=== PATIENT | male | born 1955 | race Caucasian/White ===

== ENCOUNTER → 2025-02-23 07:45 | Outpatient (CLI) | payer MEDICARE, OTHER, SELFPAY ==
--- NOTE | 2025-02-23 07:59 | DI.US.S_ITS ---
PROCEDURE: US ABD AORTA ANEURYSM SCREEN INDICATIONS: TOBACCO USE TECHNIQUE: Real-time scanning was performed of the aorta and proximal common iliac arteries, with image documentation. COMPARISON: None. FINDINGS: Aorta: No ultrasound evidence of abdominal aortic aneurysm. Moderate vascular calcifications are noted diffusely in the aorta and iliac vessels. The aorta in axial dimensions measures approximately: Proximal 2.5 x 2.4 cm. Mid 2.1 x 1.8 cm Distal 2.5 x 2.3 cm Right common iliac artery 0.9 cm Left common iliac artery 0.8 cm. Iliacs: Proximal common iliac arteries are normal in caliber. IMPRESSION: No ultrasound evidence of abdominal aortic aneurysm. Moderate vascular calcifications. Dictated by: Bryant Thomas M.D. on 02/23/2025 at 8:30 Approved by: Bryant Thomas M.D. on 02/23/2025 at 8:32
--- NOTE | 2025-02-23 08:18 | DI.CT.S_ITS ---
PROCEDURE: CT LUNG LOW DOSE SCREENING INDICATIONS: TOBACCO USE TECHNIQUE: Noncontrast 2.0-2.5 mm thick sections acquired from the pulmonary apices to the posterior costophrenic angles. 7 mm thick axial MIP, and 5 mm coronal and sagittal reformats were then acquired. For radiation dose reduction, the following was used: automated exposure control, adjustment of mA and/or kV according to patient size. COMPARISON: None. FINDINGS: Image quality: Diagnostic. Lower Neck: No enlarged lymph nodes. Thyroid: No thyroid nodules which require sonographic follow up, per consensus guidelines. Axillae: No enlarged lymph nodes. Chest Wall: Unremarkable. Bones: No acute osseous abnormalities. Chronic appearing anterior compression fractures of the upper thoracic spine with associated increased kyphosis. No suspicious osseous lesions. Multilevel thoracic spondylosis. Lungs and Pleura: No pneumothorax or pleural effusions. Moderate bibasilar atelectasis. Possible fissural based nodule abutting atelectasis in the anterior aspect of the right middle lobe and right minor fissure measuring 5 mm (154/series 2). Benign calcified pulmonary granuloma noted in the posterior left upper lobe (127/series 2). Otherwise, no suspicious pulmonary nodules. A septal thickening or nodularity. No acute consolidation. Heart: Heart size is normal. No pericardial effusion. Multivessel atherosclerotic calcifications of the coronary arteries. Thoracic Vessels: The aorta and pulmonary arteries demonstrate normal size. Atherosclerotic calcifications of the aortic arch are present. Mediastinum and Jie: No enlarged lymph nodes. Multiple prominent mediastinal and hilar lymph nodes which are more notable for number rather than size are favored to represent reactive adenopathy. Esophagus: No wall thickening. No hiatal hernia. Upper Abdomen: Visualized upper abdomen solid organs and bowel loops appear normal. IMPRESSION: No suspicious pulmonary nodules. LUNG-RADS 2; continued annual screening, if eligible. Clinically Significant Non-pulmonary Findings: Moderate coronary atherosclerosis. Consider cardiology consultation. Dictated by: Ander Seals M.D. on 02/23/2025 at 10:12 Approved by: Ander Seals M.D. on 02/23/2025 at 10:19
== END ==
PROVIDERS: PCP Family Medicine; Referring Provider Family Medicine; Visit Provider Family Medicine
DX: Z12.2 Encounter for screening for malignant neoplasm of respiratory organs (principal); Z13.6 Encounter for screening for cardiovascular disorders; F17.210 Nicotine dependence, cigarettes, uncomplicated; I70.0 Atherosclerosis of aorta; I25.10 Atherosclerotic heart disease of native coronary artery without angina pectoris
CPT/HCPCS: 71271; 76706

== ENCOUNTER → 2025-04-07 16:19 | Outpatient (CLI) | payer MEDICARE, OTHER, SELFPAY ==
[2025-04-07 17:47] LABS: Add Manual Diff / Slide Review NO; Basophils Absolute Auto 0 /uL (0-100); Basophils Percent Auto 0.5 % (0-2); Eosinophils Absolute Auto 100 /uL (0-450); Eosinophils Percent Auto 1.8 % (2-4); Hematocrit 39.5 % (41-53); Hemoglobin 13.6 g/dL (13.5-17.5); Lymphocytes Absolute Auto 1300 /uL (1100-4500); Mean Corpuscular HGB Conc 34.5 % (30-36); Mean Corpuscular Hemoglobin 35.7 PG (26-34); Mean Corpuscular Volume 103.4 fL (80-100); Monocytes Absolute Auto 1000 /uL (0-900); Monocytes Percent Auto 13.1 % (3-14); Neutrophils Absolute Auto 5200 /uL (1500-7000); Neutrophils Percent Auto 67.6 % (50-75); Platelet Count 293 X10^3/uL (150-400); Red Blood Cell Count 3.82 X10^6/uL (4.5-5.9); Red Cell Distribution Width 13.8 % (11.6-14.8); White Blood Cell Count 7.7 X10^3/uL (4.5-11.0)
[2025-04-07 17:58] LABS: Alanine Aminotransferase 19 IU/L (<50); Albumin 4.2 g/dL (3.5-5.0); Albumin Globulin Ratio 1.1 (1.0-2.8); Alkaline Phosphatase 57 U/L (38-126); Aspartate Aminotransferase 32 IU/L (17-59); BUN Creatinine Ratio 12.3 (6-22); Bilirubin Total 0.4 mg/dL (0.2-1.3); Blood Urea Nitrogen 8 mg/dL (9-20); Calcium 9.3 mg/dL (8.4-10.2); Carbon Dioxide 24 mmol/L (22-32); Chloride 96 mmol/L (98-107); Cholesterol 199 mg/dL (140-199); Estimated Glomerular Filt Rate > 60 mL/min (>60); Globulin 3.7 g/dL (1.7-4.1); Glucose 86 mg/dL (70-99); HDL Cholesterol 77 mg/dL (40-60); HEMOLYSIS < 15 (0-50); LDL Cholesterol Calculated 109 mg/dL (<100); Potassium 4.6 mmol/L (3.4-5.1); Sodium 129 mmol/L (137-145); Total Protein 7.9 g/dL (6.3-8.2); Triglycerides 65 mg/dL (35-150)
[2025-04-07 18:29] LABS: Prostate Specific Antigen 0.551 ng/mL (0.10-4.00)
== END ==
PROVIDERS: Urology; PCP Family Medicine; Referring Provider Family Medicine; Visit Provider Family Medicine
DX: N40.1 Benign prostatic hyperplasia with lower urinary tract symptoms (principal); Z72.0 Tobacco use; E78.1 Pure hyperglyceridemia; Z12.5 Encounter for screening for malignant neoplasm of prostate; E87.1 Hypo-osmolality and hyponatremia; R35.0 Frequency of micturition; Z13.6 Encounter for screening for cardiovascular disorders
CPT/HCPCS: 36415; 80053; 80061; 84153; 85025

== ENCOUNTER 2025-11-03 15:47 | Emergency (ER) | payer MEDICARE, OTHER, SELFPAY ==
[2025-11-03 15:53] VITALS: BP 141/78; PULSE 81; RESP 16; TEMP 36.1; O2SAT 97; BMI 25.7
--- NOTE | 2025-11-03 15:59 | DI.US.S_ITS ---
PROCEDURE: US ABDOMEN LIMITED INDICATIONS: RUQ pain TECHNIQUE: Real-time scanning was performed of the abdominal and retroperitoneal organs, with image documentation. COMPARISON: [facility], CT, CT ABDOMEN PELVIS W CON, 11/03/2025, 16:08. FINDINGS: Liver: Liver is normal in size and homogeneous in echotexture. Gallbladder: Mobile foci of echogenicity are present. Wall thickness is normal measuring 2.6 cm. No pericholecystic fluid. Biliary ducts: Intrahepatic bile ducts are non-dilated. Extrahepatic bile duct caliber measures 4.2 mm. Normal is 6-7 mm or less in diameter, or 10 mm or less post-cholecystectomy. Pancreas: Visualized portions of the pancreas are sonographically normal. Miscellaneous: No free abdominal fluid. IMPRESSION: Cholelithiasis without imaging appearance of cholecystitis. Dictated by: Ольга Swan M.D. on 11/03/2025 at 16:59 Approved by: Ольга Swan M.D. on 11/03/2025 at 16:59
--- NOTE | 2025-11-03 15:59 | DI.CT.S_ITS ---
PROCEDURE: CT ABDOMEN PELVIS W CON INDICATIONS: Epigastric and right upper quadrant pain TECHNIQUE: After the administration of intravenous contrast, axial sections acquired from the lung bases to the pubic symphysis. Coronal and sagittal reformats were performed. For radiation dose reduction, the following was used: automated exposure control, adjustment of mA and/or kV according to patient size. COMPARISON: [facility], US, US ABD AORTA ANEURYSM SCREEN, 02/23/2025, 8:03. FINDINGS: Image quality: Diagnostic. Lower Chest: Streaky right upper lobe opacity as well as bibasilar opacities appearing most suggestive of scarring. ABDOMEN: Liver: No solid mass. Steatosis. Gallbladder: No radiopaque gallstones or wall thickening. Biliary ducts: No biliary dilation. Pancreas: No ductal dilation. Spleen: Size is within normal limits. Adrenal Glands: No adrenal nodules. Kidneys and Ureters: No hydronephrosis. Punctate nonobstructing left renal calcification. Stomach and Bowel: Normal colonic caliber, without significant wall thickening. [id number]-[id number] scattered colonic stool. Peritoneum: No abnormal intraperitoneal fluid. No free air. Ventral Wall: No significant ventral hernia. Abdominal Nodes: No retroperitoneal or mesenteric adenopathy by size criteria. Vessels: Aorta and inferior vena cava are normal in size. Prominent atherosclerotic vascular calcifications. PELVIS: Pelvic Organs: Unremarkable. Bladder: No bladder wall thickening, accounting for underdistention. Pelvic Nodes: No enlarged lymph nodes. Miscellaneous: No inguinal hernias are seen. Bones: No aggressive osseous abnormality. IMPRESSION: Ygur-qp-[id number] colonic stool. No obstruction. Nonobstructing left renal calculus. Dictated by: Ольга Swan M.D. on 11/03/2025 at 16:28 Approved by: Ольга Swan M.D. on 11/03/2025 at 16:31
[2025-11-03 16:15] LABS: Add Manual Diff / Slide Review NO; Hematocrit 36.6 % (41-53); Hemoglobin 12.9 g/dL (13.5-17.5); Lymphocytes Absolute Auto 1100 /uL (1100-4500); Mean Corpuscular HGB Conc 35.2 % (30-36); Mean Corpuscular Hemoglobin 36.3 PG (26-34); Mean Corpuscular Volume 103.1 fL (80-100); Platelet Count 302 X10^3/uL (150-400)
[2025-11-03 16:29] LABS: Alanine Aminotransferase 16 IU/L (<50); Albumin 4.4 g/dL (3.5-5.0); Albumin Globulin Ratio 1.1 (1.0-2.8); Alkaline Phosphatase 54 U/L (38-126); Blood Urea Nitrogen 13 mg/dL (9-20); Calcium 9.4 mg/dL (8.4-10.2); Carbon Dioxide 20 mmol/L (22-32); Chloride 99 mmol/L (98-107); Estimated Glomerular Filt Rate > 60 mL/min (>60); Globulin 4.0 g/dL (1.7-4.1); Glucose 102 mg/dL (70-99); HEMOLYSIS < 15 (0-50); Lactate (Lactic Acid) 0.8 mmol/L (0.7-2.1); Lipase 81 U/L (23-300); Potassium 4.4 mmol/L (3.4-5.1); Sodium 128 mmol/L (137-145); Total Protein 8.4 g/dL (6.3-8.2)
[2025-11-03] MEDS: KETOROLAC 30 MG/ML VIAL 15 MG IV (16:44)
--- NOTE | 2025-11-03 16:52 | DI.CT.S_ITS ---
PROCEDURE: CT ANGIO CHEST PE PROTOCOL INDICATIONS: Right lower sided chest pain TECHNIQUE: After the administration of intravenous contrast, 2 mm thick sections acquired from the pulmonary apices to the posterior costophrenic angles. 3-dimensional maximum intensity projection (MIP) coronal and sagittal reformats were then acquired through the thorax. For radiation dose reduction, the following was used: automated exposure control, adjustment of mA and/or kV according to patient size. COMPARISON: [facility], CT, CT LUNG LOW DOSE SCREENING, 02/23/2025, 8:33. FINDINGS: Quality: Diagnostic. Vasculature: Aorta: No aneurysm. Pulmonary arteries: No emboli. Lungs: Parenchyma: Mild emphysematous changes. Subpleural scarring and atelectasis in the dependent bilateral lower lobes, greater along the right pleura.. Airways: Patent. Pleura: No pneumothorax. No pleural effusion. Mediastinum: Thyroid: Unremarkable. Esophagus: Unremarkable. Heart: Normal size. Severe coronary calcification Lymph nodes: Abnormally enlarged lymph nodes in the hilar and mediastinal base since, similar to prior examination. Reference node in the right infrahilar region measures 1.6 cm in short axis. Other: Chest wall: Unremarkable. Upper abdomen: Unremarkable. Bones: No aggressive osseous lesion. Vertebral body height loss at T5-T8, unchanged IMPRESSION: No pulmonary embolus. No acute cardiopulmonary process. Chronic mediastinal lymphadenopathy. Dictated by: Devin Mart M.D. on 11/03/2025 at 17:10 Approved by: Devin Mart M.D. on 11/03/2025 at 17:17
--- NOTE | 2025-11-03 17:06 | EKG_ITS ---
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
[2025-11-03 17:07] VITALS: PULSE 79; O2SAT 98
[2025-11-03 17:30] VITALS: PULSE 73; O2SAT 95
[2025-11-03 18:00] VITALS: PULSE 72; O2SAT 95
[2025-11-03 18:10] LABS: Creatine Kinase 104 U/L (55-170)
--- NOTE | 2025-11-03 18:17 | ED.ABDPAIN ---
HPI - Abdominal Pain General Chief Complaint: Abdominal Pain Stated Complaint: chest px (lung) 4 days Time Seen by Provider: 11/03/25 15:59 Source: patient Mode of arrival: Ambulatory History of Present Illness HPI narrative: 70-year-old male with no reported past medical history presents to the emergency department with right-sided lower rib pain. Patient states that the pain started 4 days ago, aggravated with movements. No trauma. No nausea, vomiting, fever, chills, dysuria, lightheadedness, dizziness, syncope. No prior abdominal surgeries. Patient is a daily smoker, smoked for several years. Related Data Previous Rx's ?Medication ?Instructions ?Recorded clobetasol 0.05 % topical cream 1 applic topical BID 2 weeks #60 06/02/25 grams triamcinolone acetonide 0.1 % 1 applic topical BID #30 grams 06/02/25 topical cream Allergies Allergy/AdvReac Type Severity Reaction Status Date / Time No Known Drug Allergies Allergy Verified 11/03/25 15:54 Review of Systems Constitutional Constitutional: Denies chills, Denies fatigue, Denies fever(s), Denies frequent falls, Denies lethargy and Denies weakness Eyes Eyes: Denies change in vision, Denies eye discharge, Denies irritation and Denies loss of vision ENT Ears, Nose, Mouth, and Throat: Denies change in voice, Denies dizziness, Denies neck pain, Denies sore throat and Denies throat swelling Cardiovascular Cardiovascular: Reports chest pain, Denies irregular heart rhythm, Denies lightheadedness, Denies palpitations, Denies dyspnea, Denies dyspnea on exertion and Denies orthopnea Respiratory Respiratory: Denies cough, Denies dyspnea, Denies dyspnea on exertion and Denies wheezing Gastrointestinal Gastrointestinal: Reports abdominal pain, Denies change in bowel habits, Denies diarrhea, Denies nausea and Denies vomiting Musculoskeletal Musculoskeletal: Denies neck pain and Denies numbness Comments: Right lower rib pain Integumentary/Breasts Skin/Breast: Denies pruritus, Denies erythema, Denies rash and Denies wounds Neurologic Neurologic: Denies behavioral changes, Denies confusion, Denies dizziness, Denies frequent falls, Denies loss of vision, Denies numbness and Denies weakness Psychiatric Psychiatric: Denies anxiety, Denies behavioral changes, Denies confusion, Denies depression, Denies homicidal ideation and Denies suicidal ideation Endocrine Endocrine: Denies fatigue, Denies flushing and Denies palpitations Hematologic/Lymphatic Hematologic/Lymphatic: Denies easy bruising Allergic/Immunologic Allergic/Immunologic: Denies urticaria, Denies throat swelling and Denies wheezing Patient History Medical History Hyponatremia Establishing care with new doctor, encounter for Social History Smoking Status: Current every day smoker Tobacco: How many years used: 50 quit status: not considering quitting alcohol intake: current (2 drinks per day ) substance use type: does not use Smoking Status: Current every day smoker tobacco type: cigarettes Exam Narrative Exam Narrative: Const General:?cooperative, healthy appearing and comfortable HENMO Head:?normal to inspection Ears:?hearing grossly normal bilaterally Nose:?external nose normal Face and sinus:?normal facial exam and sinuses nontender Mouth:?oral mucosae normal Throat:?posterior oropharynx normal Eyes General:?appearance normal, both eyes and all related structures Neck Neck:?normal visual inspection and no lymphadenopathy noted Resp Effort & Inspection:?normal respiratory effort Auscultation:?clear to auscultation bilaterally Cardio Rate:?regular rate Rhythm:?regular rhythm GI Abdomen is soft, nondistended, is exquisitely tender to palpation in the right upper quadrant, epigastric regions. Musculoskeletal There is point tenderness to the right lower lateral rib area. Neuro General:?patient alert, patient awake and patient oriented x3 Initial Vital Signs Initial Vital Signs: Vital Signs Temperature 97.0 F L 11/03/25 15:53 Pulse Rate 81 11/03/25 15:53 Respiratory Rate 16 11/03/25 15:53 Blood Pressure 141/78 H 11/03/25 15:53 Pulse Oximetry 97 11/03/25 15:53 Oxygen Delivery Method Room Air 11/03/25 15:53 Course Orders Ordered: ED Orders 11/03/25 15:59 CT abdomen pelvis w con Stat US abdomen limited Stat 11/03/25 16:02 EKG-12 Lead Stat 11/03/25 16:05 BNP [NT-proBNP (BNP-Adult 18+)] Stat CBC Auto Diff [Complete Blood Count AUTO DIFF] Stat CMP [Comprehensive Metabolic Panel] Stat Lactate (Lactic Acid) Stat Lipase Stat Troponin & CK Cardiac Panel Stat 11/03/25 16:07 D Dimer Stat 11/03/25 16:52 CT angio chest PE protocol Stat Discontinued Medications Ketorolac Tromethamine (Ketorolac 30 Mg/Ml Vial) 15 mg IV NOW ONE Stop: 11/03/25 16:01 Last Admin: 11/03/25 16:44 Dose: 15 mg Documented By: AB Vital Signs Vital signs: Vital Signs - 8 hr 11/03/25 15:53 11/03/25 17:07 11/03/25 17:30 Temperature 97.0 F L Pulse Rate 81 79 73 Respiratory Rate 16 Blood Pressure 141/78 H Pulse Oximetry 97 98 95 Oxygen Delivery Method Room Air 11/03/25 18:00 11/03/25 18:26 11/03/25 18:26 Temperature Pulse Rate 72 78 Respiratory Rate Blood Pressure 141/77 H Pulse Oximetry 95 97 Oxygen Delivery Method Room Air MDM - Abdominal Pain Lab Data 11/03/25 16:05 11/03/25 16:05 Labs: Lab Results 11/03/25 11/03/25 Range/Units 16:05 16:07 WBC 8.5 (4.5-11.0) X10^3/uL RBC 3.55 L (4.5-5.9) X10^6/uL Hgb 12.9 L (13.5-17.5) g/dL Hct 36.6 L (41-53) % MCV 103.1 H (80-100) fL MCH 36.3 H (26-34) PG MCHC 35.2 (30-36) % RDW 13.1 (11.6-14.8) % Plt Count 302 (150-400) X10^3/uL Neut % (Auto) 69.7 (50-75) % Lymph % (Auto) 13.3 L (25-40) % [place] % (Auto) 15.1 H (3-14) % Eos % (Auto) 1.5 L (2-4) % Baso % (Auto) 0.4 (0-2) % Neut # (Auto) 6000 (4180-8426) /uL Lymph # (Auto) 1100 (0634-4574) /uL [place] # (Auto) 1300 H (0-900) /uL Eos # (Auto) 100 (0-450) /uL Baso # (Auto) 0 (0-100) /uL D-Dimer 1598 H (<500) ng/ml Sodium 128 L (137-145) mmol/L Potassium 4.4 (3.4-5.1) mmol/L Chloride 99 (98-107) mmol/L Carbon Dioxide 20 L (22-32) mmol/L BUN 13 (9-20) mg/dL Creatinine 0.72 (0.66-1.25) mg/dL Estimated GFR > 60 (>60) mL/min BUN/Creatinine Ratio 18.1 (6-22) Glucose 102 H (70-99) mg/dL Lactate 0.8 (0.7-2.1) mmol/L Calcium 9.4 (8.4-10.2) mg/dL Total Bilirubin 0.5 (0.2-1.3) mg/dL AST 31 (17-59) IU/L ALT 16 (<50) IU/L Alkaline Phosphatase 54 (38-126) U/L Total Creatine Kinase 104 (55-170) U/L Troponin I < 0.012 (0.01-0.034) ng/mL NT-Pro-B Natriuret Pep 173 H (<125) pg/mL Total Protein 8.4 H (6.3-8.2) g/dL Albumin 4.4 (3.5-5.0) g/dL Globulin 4.0 (1.7-4.1) g/dL Albumin/Globulin Ratio 1.1 (1.0-2.8) Lipase 81 (23-300) U/L Point of care testing: Urine Dip Bedside Urine Glucose Negative Bedside Urine Bilirubin - Negative Bedside Urine Ketone - Negative Urine Specific [place] 1.005 Bedside Urine Occult Blood - Negative Bedside Urine pH 6.0 Bedside Urine Protein - Negative Bedside Urine Urobilinogen - Negative Bedside Urine Nitrite - Negative Bedside Urine Leukocytes - Negative Esterase MDM Narrative Medical decision making narrative: 70-year-old male with no reported past medical history presents to the emergency department with right-sided lower rib pain. Patient's symptoms concerning for rib contusion versus rib fracture versus musculoskeletal sprain/strain versus coli lithiasis versus cholecystitis versus choledocholithiasis versus pancreatitis versus other intra-abdominal pathology versus other. Obtain labs, UA, CT abdomen pelvis, ultrasound abdomen. Labs without acute findings. Urine without infection. CT abdomen pelvis with [id number] colonic stool. No obstruction. Obstructing left renal calculus. Ultrasound shows cholelithiasis without imaging appearance of cholecystitis. A D-dimer was obtained to rule out PE since patient is a daily smoker. D-dimer was elevated to 1598. CT PE was obtained. CT PE shows no pulmonary embolus, no acute cardiopulmonary process, chronic mediastinal lymphadenopathy. Troponin and BNP within normal limits. EKG is normal sinus rhythm. No acute ST-T changes. Patient's symptoms improved with the Toradol. Given an extensive negative workup, it appears that patient's symptoms might be due to a musculoskeletal sprain/strain of the right, lower ribs. Patient discharged home, recommend continuing ibuprofen, Tylenol. ED return precautions discussed with patient. Patient verbalized understanding. Medical records reviewed: Yes Discharge Plan Departure Patient Disposition: Home Clinical Impression: Pain in rib Instructions: DI for Rib Contusion Activity Restrictions/Additional Instructions: You were evaluated in the emergency department today for right-sided rib pain. Your workup today was normal. It appears that your symptoms are most likely due to a rib contusion or sprain. Your symptoms improved with Toradol. You may continue taking 800 mg of ibuprofen every 8 hours with food for the pain. Please follow-up with your PCP as soon as possible. Return to the emergency department if you have worsening symptoms, chest pain, shortness of breath. Prescriptions: No Action clobetasol 0.05 % cream 1 applic topical BID 14 Days Qty: 60 1RF triamcinolone acetonide 0.1 % cream 1 applic topical BID Qty: 30 1RF Rx Instructions: use once rash is starting to improve Referrals: Diane Michaels MD [Primary Care Provider, Family Practice] Stand Alone Forms: Patient Portal/API
[2025-11-03 18:23] LABS: NT-proBNP (BNP-Adult 18+) 173 pg/mL (<125); Troponin I < 0.012 ng/mL (0.01-0.034)
[2025-11-03 18:26] VITALS: BP 141/77; PULSE 78; O2SAT 97
== END 2025-11-03 18:31 | disposition home or self-care (01) ==
PROVIDERS: Emergency Provider Student in an Organized Health Care Education/Training Program; PCP Family Medicine
DX: R07.89 Other chest pain (principal); F17.210 Nicotine dependence, cigarettes, uncomplicated; N20.0 Calculus of kidney; K80.20 Calculus of gallbladder without cholecystitis without obstruction
CPT/HCPCS: 36415; 71275; 74177; 76705; 80053; 81003; 82550; 83605; 83690; 83880; 84484; 85025; 85379; 93005; 96374; 99284; J1885; Q9967